=== PATIENT | female | born 1955 | race Caucasian/White ===

== ENCOUNTER 2021-10-17 04:26 | Day surgery (SDC) | payer OTHER ==
[2021-10-16 10:32] VITALS: BMI 32.3
[2021-10-17] MEDS ORDERED: BUPIVACAINE HCL/PF 0.5% (5MG/ML) 10 ML VIAL ONE (13:51)
[2021-10-17] MEDS ORDERED: LIDOCAINE HCL 1% EPINEPHRINE 1:200,000 30 ML VIAL (PF) ONE ×2 (13:51→15:25)
[2021-10-17] MEDS ORDERED: BUPIVACAINE HCL/PF 0.25% (2.5MG/ML) 10 ML VIAL ONE (14:42)
[2021-10-17] MEDS ORDERED: KETAMINE HCL 200 MG/20 ML VIAL ONE (15:02)
[2021-10-17] MEDS ORDERED: LIDOCAINE HCL 2% 100 MG/5 ML DISP.SYRIN ONE (15:02)
[2021-10-17] MEDS ORDERED: PROPOFOL 20 ML ONE ×2 (15:02)
[2021-10-17] MEDS ORDERED: MIDAZOLAM HCL 2 MG/2 ML SINGLE DOSE VIAL ONE (15:02)
[2021-10-17] MEDS ORDERED: LIDOCAINE 1%/EPI 1:100000 (50 ML MULTI DOSE VIAL) INF ONE (15:14)
[2021-10-17] MEDS ORDERED: BUPIVACAINE HCL/PF 0.25% (2.5MG/ML) 10 ML VIAL IJ ONE (15:36)
[2021-10-17 18:21] VITALS: BP 109/65; PULSE 66; TEMP 98
== END 2021-10-17 18:45 | disposition home or self-care (01) ==
LOC: JASU-SURG 04:26
PROVIDERS: ATTEND Surgery Surgical Oncology
PROC: 0HBT0ZX Excision of Right Breast, Open Approach, Diagnostic (ICD-10-PCS; principal; 2021-10-17 15:00)
DX: D24.1 Benign neoplasm of right breast (principal)
CPT/HCPCS: 19281; 76098-TC-FY; 88307-TC; 94760